=== PATIENT | female | born 1965 | race Caucasian/White ===

== ENCOUNTER 2024-06-08 17:35 | Emergency (ER) | payer MEDICARE, MEDICAID ==
[~2024-06-08] VITALS: Ht 152.4 cm; Wt 63.6 kg
[~2024-06-08 17:35] MED LIST: ACET325T57 PO; ACET325T58 PO; ALBU18HF2 INH; ASPI-1265 PO; ATRIN INH; BALS60OI TOP; BECL8.7A5 IH; CLON-529 PO; CYAN500T71 PO; DOCU100C40 PO; FENT1PAT7 TOP; HEPA50002 SQ; HYDR-4353 PO; HYDR-4383 PO; IPRA3AMP9 NEB; LEVE100S21 PO; LORA2VIA31 IV; METH12DI SUBCUT; METH40VI24 IV; MONT-48 PO; NITR1PAT63 TD; NYST100069 PO; OLAN2.5T3 PO; POLY17PO10 PO; POTA-197 PO; POTA20LI5 CORPAK; RANI300C7 PO; SENN1TAB61 PO; TOP100T PO; [UNRECOGNIZED DRUG - CODE] PO
[2024-06-08 17:47] VITALS: TEMP 98
--- NOTE | 2024-06-08 17:51 | ELECTROCARDIOGRAPH REPORT ---
[facility] Test Date: 2024-06-08 Test Time: 17:49:31 Pat Name: MATT CERVANTES Department: [facility]- Patient ID: [facility]-[id number] Room: Gender: F Business Services Manager: : 1965 Requested By: ACE NAVARRO Order Number: [id number] Reading MD: Dr. Satnam Veronica Measurements Intervals [place] Rate: 119 P: 84 ID: [id number] QRS: 86 QRSD: 95 T: 66 QT: 312 QTc: 439 Interpretive Statements Sinus tachycardia Minimal ST depression, diffuse leads Electronically Signed On 06-11-2024 19:03:[address] Satnam Veronica Please click the below link to view image of tracing.
--- NOTE | 2024-06-08 17:57 | Physician Documentation ---
History of Present Illness ~ Chief Complaint: Chest Pain Stated Complaint: CP Time Seen by MD: 17:56 Primary Medical Doctor: RUBINA DOTY HPI 58-year-old female, history of COPD, mi with stents, who presents with chest pain. She tells me that over the last couple of weeks she has been having burning chest pain. She states it is her entire chest and radiates through to her back. It is constant, but worse when she tries to lie flat at night. Food does not change it. Nothing makes it better. She went to an outside hospital about a week ago, and had a full workup including a cardiac workup and a CT scan of her chest. She says her white blood cell count was elevated and they discharged her on Keflex. She was started on blood pressure medicine. She was also given prednisone for COPD. She is on oxygen at baseline. She does use her inhalers regularly and a ne bulizer. She does feel short of breath She does have a history of reflux, is on Pepcid, has tried multiple antacids without relief. She tells me they gave her a GI cocktail at the other hospital and it did not help. Medication Reconciliation Allergies: Coded Allergies: iodine (Unverified Allergy, Severe, 06/26/15) IV IODIEN AND IV DYE Iodinated Contrast Media (Unverified Allergy, Unknown, RASH, 06/27/15) acetazolamide sodium (Verified Allergy, Unknown, 05/17/13) azithromycin (Unverified Allergy, Unknown, 05/26/15) erythromycin base (Verified Allergy, Unknown, 05/17/13) guaifenesin (Unverified Allergy, Unknown, 05/26/15) ibuprofen (Verified Allergy, Unknown, 05/17/13) lamotrigine (Verified Allergy, Unknown, 05/17/13) metaproterenol (Verified Allergy, Unknown, 05/17/13) norfloxacin (Verified Allergy, Unknown, 05/17/13) phenobarbital (Verified Allergy, Unknown, 05/17/13) phenytoin (Verified Allergy, Unknown, 05/17/13) tetracycline (Verified Allergy, Unknown, 05/17/13) tiotropium (Verified Allergy, Unknown, 05/17/13) valproic acid (Verified Allergy, Unknown, 05/17/13) Scheduled Albuterol Sulfate (Ventolin Hfa), 4 PUFFS INH Q4H, (Reported) Aspirin (Aspirin), 1 TAB PO DAILY, (Reported) Balsam [place]iy[place] Oil (Venelex Ointment), 1 APPLIC TOP BID, (Reported) Beclomethasone Diprop. 80mcg/inhalation (Qvar 80mcg/inhalation), 7.3 GM IH BID, (Reported) Carbamazepine (Carbamazepine), 100 MG PO QID, (Reported) Clonidine Hcl* (Catapres*), 0.2 MG PO TID, (Reported) Cyanocobalamin* (Vitamin B-12*), 1,000 MCG PO DAILY, (Reported) Docusate Sodium (Docusate Sodium), 1 CAP PO BID, (Reported) Fentanyl (Fentanyl), 100 MCG TOP Q72H, (Reported) Heparin Sodium,Porcine/Pf (Heparin Na 5,000 Units/0.5 Ml), 5,000 UNITS SQ Q12H Ipratropium Caroleen MDI* (Atrovent MDI*), 4 PUFFS INH QID, (Reported) Ipratropium/Albuterol Sulfate (IPRAT-ALBUT 0.5-3(2.5) MG/3 ML nebule), 3 ML NEB Q6HRT Levetiracetam (Keppra oral solution), 750 MG PO BID, (Reported) Methylprednisolone Sod Succ (Methylprednisolone Sod Succ), 40 MG IV DAILY, (Reported) Montelukast Sodium (Singulair), 1 TAB PO HS, (Reported) Nitroglycerin Patch 0.2MG/HR* (Nitro-Dur Patch 0.2MG/HR*), 1 PATCH TD DAILY, (Reported) Nystatin (Nystatin), 5 ML PO TID Olanzapine* (Zyprexa*), 2 TAB PO HS, (Reported) Potassium Chloride (POTASSIUM Cl oral solution), 20 MEQ CORPAK Q2H, (Reported) Ranitidine Hcl (Ranitidine Hcl), 300 MG PO HS, (Reported) Sennosides/Docusate Sodium (Senna Plus Tablet), 1 EACH PO BID, (Reported) Sucralfate (Sucralfate), 1 TAB PO Q6H Topiramate (Topamax), 1 TAB PO Q12H, (Reported) Scheduled PRN Acetaminophen (Acetaminophen), 650 MG PO Q4H PRN for fever, (Reported) Acetaminophen (Acetaminophen), 650 MG PO Q4H PRN for mild pain, (Reported) Albuterol Sulfate (Ventolin Hfa), 2 PUFFS INH Q4HPRN PRN for SOB or wheezing, (Reported) Hydrocodone Bit/Acetaminophen ([place] 10-325 Tablet), 1 TAB PO Q4H PRN for severe pain, (Reported) Hydrocodone/Acetaminophen ([place] 5-325 Tablet), 1 TAB PO Q4H PRN for moderate pain 4-6, (Reported) Ipratropium Caroleen MDI* (Atrovent MDI*), 2 PUFFS INH Q2H PRN for SOB or wheezing, (Reported) Ipratropium/Albuterol Sulfate (IPRAT-ALBUT 0.5-3(2.5) MG/3 ML nebule), 3 ML NEB Q2H PRN for SOB or wheezing Lorazepam (Lorazepam), 2 MG IV Q4H PRN for for anxiety/agitation Methylnaltrexone Caroleen (Relistor), 12 MG SUBCUT Q48H PRN for constipation, (Reported) Polyethylene Glycol 3350* (Miralax*), 1 PKT PO DAILY PRN for constipation, (Reported) Potassium Chloride (Klor-Con M20), 20 MEQ PO Q4H PRN for potassium 3.1 - 3.4 Potassium Chloride (Klor-Con M20), 40 MEQ PO Q4H PRN for potassium 3.0 or less Past Medical History Past Medical History: Seizures, Hypertension, Myocardial Infarction, Asthma, COPD, GERD Past Surgical History: noncontributory Patient History: (CABG) Coronary artery bypass grafting (CVA) Cerebrovascular accident CHILD (Cancer) Malignant carcinoid tumor FATHER (kidney) (DM Type 2) Diabetes mellitus type 2 FATHER (TIA) Transient ischemic attack CHILD Asthma CHILD Hypercholesterolemia FATHER Alcohol Use: Occasionally Drug Use: none Lives In: Assisted Care Occupation: unemployed, disabled Review of Systems Cardiovascular: Reports: chest pain, palpitations Physical Exam Vital Signs: Temperature: 98.0, Source: Oral, Heart Rate: 125, Respiratory Rate: 23, BP: 155/98, Pulse Oximetry: 99, Weight: 63.600 Oxygen Flow Rate: 2.0 Physical Exam General: This is a chronically ill-appearing middle-aged female, mother at bedside. The patient was not in distress HEENT: Atraumatic, oropharynx appears dry. Tympanic membranes are gamez and slightly bulging bilateral Heart: Mild tachycardic, appears regular. Normal blood pressure. No obvious murmur Lungs: Normal work of breathing and speaks in full sentences. She does have very diminished breath sounds bilateral with poor air movement. Oxygen saturations normal on her home nasal cannula oxygen Abdomen: Soft, nondistended, nontender all quadrants Neuro: Alert and oriented, no focal deficits Psychiatric: Calm and cooperative with exam Progress Results/Orders Results/Orders Completed Orders - AYUSH COBURN MD Sucralfate Tablet (Carafate Tablet) (06/08/24 19:20) Pantoprazole 40mg Iv (Protonix 40mg Iv) (06/08/24 19:20) Potassium Bicarb 20meq Eff Tab (Effer-K (06/08/24 19:20) Pantoprazole Tablet (Protonix) (06/09/24 19:39) Medications Received in ER Medications (Trade) Dose Ordered Sig/Manasa Route PRN Reason Start Time Stop Time Status Last Admin Dose Admin (Protonix) 40 mg BKF ONCE PO 06/09/24 19:39 06/08/24 19:54 DC 06/08/24 19:44 40 MG Vital Signs 06/08/24 06/08/24 06/08/24 06/08/24 17:47 18:29 18:29 18:35 Temp 98.0 Pulse 125 105 Resp 23 16 B/P (MAP) 155/98 134/88 (103) Pulse Ox 99 99 99 O2 Delivery Nasal Cannula* O2 Flow Rate 2.0 0 3 FiO2 N/A 06/08/24 19:52 Pulse 103 Resp 18 B/P (MAP) 150/100 Pulse Ox 99 Laboratory Tests Test 06/08/24 17:51 06/08/24 18:05 06/08/24 19:06 Urine Specimen Description Cln catch midstream Urine Color Yellow Urine Clarity Clear Urine pH 6.0 Urine Specific Percy <=1.005 Urine Protein Negative Urine Glucose (UA) Negative Urine Ketones Negative Urine Occult Blood Negative Urine Nitrite Negative Urine Bilirubin Negative Urine Urobilinogen 0.2 Urine Leukocyte Esterase Negative Urine Culture Indicated Not ind Volume Urine Centrifuged 10 ml Urine Comment White Blood Count 22.0 H Red Blood Count 5.02 Hemoglobin 14.0 Hematocrit 42.1 Mean Corpuscular Volume 83.9 Mean Corpuscular Hemoglobin 27.9 Mean Corpuscular Hemoglobin Concent 33.3 Red Cell Distribution Width 14.7 H Platelet Count 333 Mean Platelet Volume 10.0 Neutrophils (%) (Auto) 64.5 Lymphocytes (%) (Auto) 24.4 Monocytes (%) (Auto) 9.1 Eosinophils (%) (Auto) 1.7 Basophils (%) (Auto) 0.3 Neutrophils # (Auto) 14.2 H Lymphocytes # (Auto) 5.4 H Monocytes # (Auto) 2.0 H Eosinophils # (Auto) 0.4 Basophils # (Auto) 0.1 CBC Comment Sodium Level 139 Potassium Level 2.9 *L Chloride Level 101 Carbon Dioxide Level 30.4 Anion Gap 8 Blood Urea Nitrogen 13 Creatinine 1.07 H Estimated GFR/1.73 m2 52 BUN/Creatinine Ratio 12.1 Glucose Level 96 Lactic Acid Level 1.1 Calcium Level 8.5 Total Bilirubin 0.5 Aspartate Amino Transf (AST/SGOT) 16 Alanine Aminotransferase (ALT/SGPT) 25 Alkaline Phosphatase 111 Troponin I High Sensitivity 20 21 Pro-B-Type Natriuretic Peptide 160 H Total Protein 6.6 Albumin 3.4 Globulin 3.2 Albumin/Globulin Ratio 1.1 Procalcitonin < 0.05 Chemistry Comments Troponin I High Sens Percent Delta 5 Troponin I Hi Sens Absolute Change 1 Microbiology Date/Time Source Procedure Growth Status 06/08/24 19:06 Blood Arm Right Blood Culture - Preliminary NEGATIVE (LESS THAN 24 HOURS) Resulted EKG/XRAY/CT/US/VASC/MRI EKG : Additional Comment I personally interpreted the EKG and this shows: Sinus tachycardic, rate 119, mild ST depression in the lateral leads, poor baseline, QTC 439 Chest X-Ray : Additional Comments I personally reviewed the x-ray, and it shows: Normal mediastinum, upper lung higgins appear clear, mild consolidation in the bases on both sides Heart Score: Heart Score Response (Comments) Value History Moderate Suspicious 1 EKG Repolarization Disturb 1 Age 45-64 1 Risk Factors >3 or Hx ASHD 2 Troponin Normal limit 0 Total 5 Medical Decision Making Heart Score: 5 Differential Dx:Considerations: Include: angina, aortic dissection, chest wall pain, cholelithiasis, CHF, costochondritis, gastritis, myocardial infarction, pericarditis, pneumonia, pulmonary embolus Additional Information The patient presents with a burning type chest pain that has been ongoing for a couple of weeks. She had an extensive workup in the recent past including CT imaging of the chest with contrast, all of which did not show dangerous cause for her pain. Her workup again today does not show evidence of a heart attack or other dangerous heart or lung problem. I doubt PE or dissection given her normal CTA. Her labs do show mild hypokalemia and she was given oral potassium. Given the description of her pain and reported history of a hiatal hernia, I suspect that her symptoms are likely gastritis and esophagitis. She will be discharged with omeprazole and sucralfate as well as other symptomatic treatment and dietary changes. No other dangerous cause identified for her symptoms. I doubt COPD exacerbation given her lack of significant shortness of breath currently and I am concerned that giving her further steroids could worsen peptic ulcer disease if that is what is causing her pain. She was encouraged to follow up with the primary care doctor for further evaluation and treatment. Departure Time of Disposition: 19:30 Disposition: 01 HOME / SELF CARE / HOMELESS Impression: Primary Impression: Hypokalemia Additional Impressions: Acute chest pain Gastritis Condition: Stable Discharge Instructions: Gastritis, Adult Referrals: NO PRIMARY CARE PROVIDER (PCP) Prescriptions Sucralfate (Sucralfate) 1 Gram Tablet 1 TAB PO Q6H for 30 Days, #120 TAB 0 Refills Prov: AYUSH COBURN MD 06/08/24 Comments Your testing today did not show a dangerous cause for your burning chest pain. This includes there was no evidence of a definite pneumonia or heart attack. Your white blood cell count remains slightly elevated, at 22,000, but there was no obvious dangerous cause for this. Your pain could be related to inflammation in your stomach and throat, which can be worsened by steroid use and a hiatal hernia. Treatment plan: 1. You should try taking omeprazole instead of Pepcid. You can take 20 mg twice a day for the next 2 weeks, and then take 20 mg once a day for the following 2 weeks. This is available [id number] without a prescription, get the cheapest generic version. 2. Take the sucralfate medication 4 times a day. Take it 15-30 minutes before meals, and take it before going to bed. This helps heal your throat and stomach. 3. Eat a bland diet 4. Also try to eat more potassium rich foods like bananas, your potassium level was slightly low. Please follow-up with your primary care doctor again for re-evaluation to see if these treatments are helping. Education Educated: Patient, Family Educated regarding: diagnosis, treatment, need for follow up Signature Scribe Signature: ambrocio Attestation: AYUSH Estes MD Jun 08, 2024 17:57
[2024-06-08 18:03] LABS: BILIRUBIN,URINE NEGATIVE (Neg); CLARITY,URINE CLEAR (Clear); COLOR,URINE YELLOW (Yellow); GLUCOSE, URINE NEGATIVE (Neg); KETONES,URINE NEGATIVE (Neg); LEUKOCYTE ESTERASE ,URINE NEGATIVE (Neg); NITRITES, URINE NEGATIVE (Neg); OCCULT BLOOD,URINE NEGATIVE (Neg); PROTEIN,URINE NEGATIVE (Neg); UROBILINOGEN,URINE 0.2 E.U/dL (0.2-1.0)
--- NOTE | 2024-06-08 18:13 | RADIOLOGY REPORT ---
EXAM: XR Chest, 1 View CLINICAL INDICATION: CP TECHNIQUE: Frontal view of the chest. COMPARISON: None FINDINGS: LUNGS AND PLEURAL SPACES: Bibasilar atelectasis or pneumonia. No pneumothorax. HEART: Unremarkable. No cardiomegaly. MEDIASTINUM: Unremarkable. Normal mediastinal contour. BONES/JOINTS: Unremarkable. No acute fracture. OTHER FINDINGS: . IMPRESSION: Bibasilar atelectasis or pneumonia.
[2024-06-08 18:14] LABS: UA COLLECTION TYPE CLN CATCH MIDSTREAM
[2024-06-08 18:23] LABS: BASOPHILS # (AUTO) 0.1 X10'3 (0-0.2); BASOPHILS % (AUTO) 0.3 % (0-1); EOSINOPHILS # (AUTO) 0.4 X10'3 (0-0.9); EOSINOPHILS % (AUTO) 1.7 % (0-6); HEMATOCRIT 42.1 % (35.0-45.0); LYMPHOCYTES # (AUTO) 5.4 X10'3 (1.1-4.8); LYMPHOCYTES % (AUTO) 24.4 % (21-51); MEAN CORPUSCULAR HEMOGLOBIN 27.9 PG (27.0-31.0); MEAN CORPUSCULAR HGB CONC 33.3 g/dL (33.0-36.5); MEAN CORPUSCULAR VOLUME 83.9 FL (78-98); MONOCYTES % (AUTO) 9.1 % (2-12); NEUTROPHILS # (AUTO) 14.2 X10'3 (1.8-7.7); NEUTROPHILS % (AUTO) 64.5 % (42-75); PLATELET COUNT 333 X10'3 (140-440); RED BLOOD COUNT 5.02 X10'6 (4.20-5.60); RED CELL DISTRIBUTION WIDTH 14.7 % (11.5-14.5)
[2024-06-08 18:40] LABS: ALANINE AMINOTRANSFERASE 25 U/L (12-78); ALBUMIN 3.4 G/DL (3.4-5.0); ALBUMIN/GLOBULIN RATIO 1.1 (1.1-1.5); ALKALINE PHOSPHATASE 111 IU/L (46-116); ANION GAP 8 (8-16); ASPARTATE AMINO TRANSFERASE 16 U/L (10-37); BILIRUBIN,TOTAL 0.5 MG/DL (0.1-1.0); BLOOD UREA NITROGEN 13 MG/DL (7-18); BUN/CREATININE RATIO 12.1 (10.0-20.0); CALCIUM 8.5 MG/DL (8.5-10.1); CHLORIDE 101 MMOL/L (99-107); CREATININE 1.07 MG/DL (0.40-0.90); GLUCOSE 96 MG/DL (70-104); PRO BRAIN NATRIURETIC PEPTIDE 160 PG/ML (0-125); SODIUM 139 MMOL/L (135-145); TOTAL CARBON DIOXIDE 30.4 MMOL/L (24-32); TOTAL PROTEIN 6.6 G/DL (6.4-8.2); eCRCL 41 ML/MIN; eGFR 52 ML/MIN
[2024-06-08 18:48] LABS: POTASSIUM 2.9 MMOL/L (3.5-5.1)
[2024-06-08] MEDS: pantoprazole 40 MG vial IV SCH (19:20)
[2024-06-08] MEDS ORDERED: SUCR1TAB PO (19:32)
[2024-06-08] MEDS: POTASSIUM BICARB 20meq eff tab 20 MEQ TABLET.EFF PO SCH (19:43)
[2024-06-08] MEDS: pantoprazole 40mg Tablet.DR PO ONE (19:44)
[2024-06-08] MEDS: sucralfate 1 gm tablet PO ONE (19:44)
[2024-06-08 19:52] VITALS: BP 150/100; PULSE 103; RESP 18; O2SAT 99
== END 2024-06-08 19:53 | disposition home or self-care (01) ==
LOC: ER 17:35
DX: R07.9 Chest pain, unspecified (principal); E87.6 Hypokalemia; K29.70 Gastritis, unspecified, without bleeding; K21.9 Gastro-esophageal reflux disease without esophagitis; I10 Essential (primary) hypertension; J44.9 Chronic obstructive pulmonary disease, unspecified; Z88.1 Allergy status to other antibiotic agents; Z88.6 Allergy status to analgesic agent; Z88.8 Allergy status to other drugs, medicaments and biological substances; Z91.041 Radiographic dye allergy status; Z95.1 Presence of aortocoronary bypass graft; Z79.82 Long term (current) use of aspirin
CPT/HCPCS: 36415; 71045; 80053; 81003; 83605; 83880; 84145; 84484; 85025; 87040; 93005; 99285

== ENCOUNTER 2025-02-05 10:33 | Day surgery (SDC) | payer MEDICARE, MEDICAID ==
[~2025-02-05] VITALS: Ht 152.4 cm; Wt 64.8 kg
[2025-02-05] VITALS (8 sets, daily range): BP systolic 104–155; BP diastolic 70–83; PULSE 61–75; RESP 16–18; TEMP 97.9; O2SAT 97–98
[~2025-02-05 10:33] MED LIST changes: -ACET325T57 PO; -ASPI-1265 PO; -BALS60OI TOP; -BECL8.7A5 IH; -CLON-529 PO; +CYAN-116 PO; -CYAN500T71 PO; +DIAZ-351 PO; -DOCU100C40 PO; +FAMO20TA8 PO; -FENT1PAT7 TOP; +FLUT1BLS4 INH; +GUAI100L97 PO; -HEPA50002 SQ; -HYDR-4353 PO; -HYDR-4383 PO; -IPRA3AMP9 NEB; -LEVE100S21 PO; -LORA2VIA31 IV; +LOSA25TA41 PO; -METH12DI SUBCUT; -METH40VI24 IV; +METO-384 PO; +NITR0.4T48 SL; -NYST100069 PO; -OLAN2.5T3 PO; +PANT40TA54 PO; -POTA-197 PO; -POTA20LI5 CORPAK; +ROSU20TA98 PO; -SENN1TAB61 PO; +SUCR1TAB PO
--- NOTE | 2025-02-05 11:11 | ELECTROCARDIOGRAPH REPORT ---
[facility] Test Date: 2025-02-05 Test Time: 11:08:27 Pat Name: MATT CERVANTES Department: [facility] Patient ID: [facility]-[id number] Room: Gender: F [employer] Membership Sales Agent: : 1965 Requested By: ALFREDO PETERSON Order Number: [id number] Reading MD: Dr. LIVE Elizabeth Measurements Intervals [place] Rate: 64 P: 82 DE: 161 QRS: 74 QRSD: 95 T: 68 QT: 437 QTc: 451 Interpretive Statements Sinus rhythm Borderline low voltage, extremity leads Borderline repolarization abnormality Electronically Signed On 02-05-2025 12:39:[address] LIVE Elizabeth Please click the below link to view image of tracing.
[2025-02-05] MEDS ORDERED: heparin 1,000unit/ml 10ml vial 10 ML ONE (13:09)
[2025-02-05] MEDS ORDERED: fentaNYL/PF 50MCG/1 ML 2ML syringe ONE (13:09)
[2025-02-05] MEDS ORDERED: verapamil 2.5 mg/ml inj IV ONE (13:09)
[2025-02-05] MEDS ORDERED: LIDOcaine 1% (10mg/ml) 2ml vial ONE (13:09)
[2025-02-05] MEDS ORDERED: midazolam 1 mg/ML 2ml injection ONE ×2 (13:09→13:38)
[2025-02-05] MEDS ORDERED: nitroGLYCERIN 500mcg/5mL D5W 5 ML IV ONE (13:23)
--- NOTE | 2025-02-05 14:09 | CARDIOLOGY REPORT ---
DATE OF SERVICE: 02/05/2025 DICTATING PHYSICIAN: Larisa Damon MD CARDIAC CATHETERIZATION REPORT DATE OF STUDY: 02/05/2025 PROCEDURES: * Left heart catheterization. * Selective coronary angiography. * Left ventriculography. * Conscious sedation monitoring time for 15 minutes. INDICATION: Continues chest pain. PHYSICIAN: Iris Damon MD PROCEDURE: After informed consent was obtained, the patient was brought to the cardiac yard laborer in a fasting state where the patient was prepped and draped in the usual sterile manner. After adequate anesthesia was obtained using 1% lidocaine to the right wrist, a 5-Khmer sheath was inserted into the right radial artery using a modified Seldinger technique. Thereafter, using a cocktail of heparin, verapamil and nitroglycerin, the cocktail was given via the sheath in the radial artery to prevent coronary vasospasm and for anticoagulation. Next, using an Ultimate-2 catheter, the catheter was advanced under fluoroscopy guidance into the ascending aorta. The catheter was then manipulated to engage the left coronary system and coronary angiography of the left system was obtained. Next, the catheter was disengaged and manipulated to engage the right coronary artery and selective coronary angiography of the right coronary artery was obtained. Thereafter, the catheter was disengaged from the right coronary artery and manipulated to advance into the left ventricle where left ventriculography in the HOWE position was obtained. The catheter was then removed. Hemostasis was obtained using the radial band. HEMODYNAMICS: For the patient's hemodynamics, please refer to the event log. Left ventricular end-diastolic pressure was 5 mmHg. FINDINGS: All of the patient's coronary arteries are medium caliber vessels with mild luminal irregularities. A 20% stenosis of the proximal diagonal branch is noted. IMPRESSION: * Mild luminal irregularities with no significant coronary artery disease by angiography. * Left ventricular end-diastolic pressure was 5 mmHg. Larisa Damon MD TID: [id number] RECEIPT: [id number] JORGE/JAVIER
== END 2025-02-05 16:15 | disposition home or self-care (01) ==
LOC: SSTAY O 10:33
PROVIDERS: ATTEND Student in an Organized Health Care Education/Training Program
DX: I25.118 Atherosclerotic heart disease of native coronary artery with other forms of angina pectoris (principal); E78.00 Pure hypercholesterolemia, unspecified; I11.0 Hypertensive heart disease with heart failure; I50.9 Heart failure, unspecified; I73.9 Peripheral vascular disease, unspecified; I25.2 Old myocardial infarction; J44.89 Other specified chronic obstructive pulmonary disease; R56.9 Unspecified convulsions; Z85.89 Personal history of malignant neoplasm of other organs and systems; Z79.899 Other long term (current) drug therapy; Z95.5 Presence of coronary angioplasty implant and graft; Z95.0 Presence of cardiac pacemaker; Z87.891 Personal history of nicotine dependence; Z85.41 Personal history of malignant neoplasm of cervix uteri; Z82.49 Family history of ischemic heart disease and other diseases of the circulatory system; Z83.3 Family history of diabetes mellitus; Z82.3 Family history of stroke; Z80.9 Family history of malignant neoplasm, unspecified
CPT/HCPCS: 93005; 93458; 99152; A4615; A6258; C1894; J1644; J2003; J2250; J3010; J3490; J7030; Q0163; Q9967